=== PATIENT | female | born 1965 | race Hispanic/Latino ===

== ENCOUNTER 2017-05-23 12:43 | Outpatient (CLI) | payer SELFPAY | END 2017-05-23 12:44 | disposition home or self-care (01) | LOC: BICMAMMO 12:43 | PROVIDERS: ATTEND Nurse Practitioner Family | DX: Z12.31 Encounter for screening mammogram for malignant neoplasm of breast (principal) | CPT/HCPCS: 77067; G0202 ==

== ENCOUNTER 2018-01-28 05:46 | Emergency (ER) | payer SELFPAY ==
[2018-01-28 06:39] LABS: #Eosinphils 0.1 thou/uL (0.0-0.7); #Lymphocytes 1.3 thou/uL (1.20-3.40); #Monocytes 0.9 thou/uL (0.11-0.59); %Eosinophils 0.4 % (0.0-10.0); %Neutrophils 84.6 % (42.0-75.0); Mean Corpuscular HGB CONC 32.3 g/dL (32.0-36.0); Mean Corpuscular Hemoglobin 25.7 pg (27.0-31.0); Mean Corpuscular Volume 79.6 fL (78.0-98.0); Mean Platelet Volume 8.9 fL (7.4-10.4); Platelet Count 226 thou/uL (130-400); RBC Distribution Width 16.4 % (11.5-14.5); Red Blood Cell (RBC) Count 4.28 mill/uL (4.20-5.40); White Blood Cell (WBC) Count 14.2 thou/uL (4.8-10.8)
[2018-01-28 06:45] LABS: ALT (SGPT) 14 U/L (8-55); AST (SGOT) 18 U/L (5-34); Albumin 3.9 g/dL (3.5-5.0); Alkaline Phosphatase 59 U/L (40-150); Anion Gap 13 mmol/L (10-20); BUN (Urea Nitrogen) 16 mg/dL (9.8-20.1); Bilirubin, Total 0.9 mg/dL (0.2-1.2); Calc. Creatinine Clearance 0 mL/min (70-130); Calcium 8.9 mg/dL (7.8-10.44); Carbon Dioxide 22 mmol/L (22-29); Chloride 104 mmol/L (98-107); Estimated GFR-MDRD 58; Globulin 3.3 g/dL (2.4-3.5); Glucose 112 mg/dL (70-105); Potassium 3.5 mmol/L (3.5-5.1); Protein, Total 7.2 g/dL (6.0-8.3); Sodium 135 mmol/L (136-145)
[2018-01-28 06:47] LABS: BHCG - Serum Negative (NEGATIVE); Pregs Control Background? CLEAR/WHITE (CLR/WHITE); Pregs Control Bar Appear? YES (CONTROL BAR)
[2018-01-28 06:57] LABS: CKMB 1.2 ng/mL (0-6.6); Troponin I Less than 0.010 ng/mL (< 0.028)
--- NOTE | 2018-02-01 10:46 | EKG ---
Test Reason : Blood Pressure : / mmHG Vent. Rate : 075 BPM Atrial Rate : 075 BPM P-R Int : 130 ms QRS Dur : 076 ms QT Int : 394 ms P-R-T Axes : 071 044 069 degrees QTc Int : 439 ms Normal sinus rhythm ST abnormality, possible digitalis effect Abnormal ECG Confirmed by KENNEDY CRUZ, JUSTINA Elaine ([id number]), marketing editor SHELTON MANEUL ([id number]) on 02/01/2018 10:45:52 AM Referred By: Confirmed By:JUSTINA BENAVIDES MD
== END 2018-01-28 09:20 | disposition home or self-care (01) ==
LOC: ERS 05:46
DX: N93.8 Other specified abnormal uterine and vaginal bleeding (principal); R55 Syncope and collapse
CPT/HCPCS: 36415; 80053; 82553; 84484; 84703; 85025; 93005

== ENCOUNTER 2020-07-26 08:02 | Outpatient (CLI) | payer OTHER ==
--- NOTE | 2020-07-26 09:19 | ULT ---
Exam: Pelvic ultrasound HISTORY: Deep dyspareunia COMPARISON: None TECHNIQUE: Multiple grayscale and color Doppler images were obtained in a transabdominal and transvag inal pelvic ultrasound. Spectral analysis of the Doppler waveforms of the ovaries were performed. FINDINGS: CERVIX: Nabothian cysts are present. UTERUS: Heterogeneous in appearance. There are masslike areas of heterogeneity within the uterus prob ably attributable to uterine fibroids largest measuring 1.7 cm in greatest dimension. ENDOMETRIAL STRIPE: 7-8 mm which is within normal limits for a normal menstruating female patient, bu t this is abnormal in a postmenopausal female patient.. No fluid or fluid collection is seen in the endometrial canal. No free fluid is present. Prominent vessels are seen in the left adnexa. RIGHT OVARY: Normal flow, without focal mass. LEFT OVARY: Normal flow, without focal mass. IMPRESSION: 1. Endometrial stripe approaches 8 mm in thickness. This is abnormal in a postmenopausal female patie nt but would be within normal limits in a normal menstruating female patient. 2. Generalized heterogeneity of the uterus with 3 separate heterogeneous masses within the uterus. Fi ndings are likely related to uterine fibroids. 3. Normal appearing bilateral ovaries with arterial flow documented in each ovary.
== END 2020-07-26 08:03 | disposition home or self-care (01) ==
LOC: BICULT 08:02
PROVIDERS: ATTEND Nurse Practitioner Women's Health
DX: N94.12 Deep dyspareunia (principal); N85.8 Other specified noninflammatory disorders of uterus
CPT/HCPCS: 76856